=== PATIENT | female | born 1980 | race Caucasian/White ===

== ENCOUNTER 2020-10-17 19:52 | Emergency (ER) | payer BC ==
[~2020-10-17] VITALS: Ht 160 cm; Wt 73.8 kg
[~2020-10-17 19:52] MED LIST: IBUP200T49 PO; OXYC1TAB14 PO; PNV1TABL11 PO
[2020-10-17 20:14] VITALS: BP 170/97
[2020-10-17] MEDS ORDERED: KETOROLAC 30 MG/1 ML IM ONE (21:00)
[2020-10-17] MEDS ORDERED: CYCLOBENZAPRINE 10 MG TABLET PO ONE (21:00)
[2020-10-17] MEDS ORDERED: ACETAMINOPHEN 500 MG TABLET PO ONE (21:00)
--- NOTE | 2020-10-17 21:19 | NUR ---
PT AMBULATES FROM LOBBY TO ROOM WITH STEADY GAIT.
[2020-10-17] MEDS ORDERED: KETOROLAC 30 MG/1 ML ONE (21:21)
[2020-10-17] MEDS ORDERED: ACETAMINOPHEN 500 MG TABLET ONE (21:21)
[2020-10-17] MEDS ORDERED: CYCLOBENZAPRINE 10 MG TABLET ONE (21:21)
--- NOTE | 2020-10-17 21:27 | NUR ---
pt medicated per mar.
--- NOTE | 2020-10-17 22:32 | NUR ---
Note maris in ED - 10/17/20 at 2233 by LARRY pt asleep in [place] at this time with sherley. equal bilateral rise and fall of chest noted. awaiting tele psych consult for pt disposition at this time.
[2020-10-17] MEDS ORDERED: DIAZEPAM 5 MG TABLET ONE (22:47)
[2020-10-17] MEDS ORDERED: HYDROcodone/APAP 5/325 TABLET ONE (22:48)
--- NOTE | 2020-10-17 22:50 | NUR ---
pt medicated per mar.
[2020-10-17] MEDS ORDERED: HYDROcodone/APAP 5/325 TABLET PO ONE (23:00)
[2020-10-17] MEDS ORDERED: DIAZEPAM 5 MG TABLET PO ONE (23:00)
--- NOTE | 2020-10-17 23:05 | NUR ---
PT D/C WITH D/C SUMMARY AND SCRIPTS. ALL QUESTIONS ANSWERED. PT AMBULATES TO REGISTRATION DESK WITH STEADY GAIT FOR D/C HOME WITH FAMILY. PT VERBALIZES UNDERSTANDING OF NEED NOT TO DRIVE WHILE MEDICATED WITH MEDS PER MAR. PT VSS.
== END 2020-10-17 23:36 | disposition home or self-care (01) ==
LOC: ED 22:26
DX: S46.812A Strain of other muscles, fascia and tendons at shoulder and upper arm level, left arm, initial encounter (principal); M62.830 Muscle spasm of back; X58.XXXA Exposure to other specified factors, initial encounter; Y93.89 Activity, other specified; Y92.89 Other specified places as the place of occurrence of the external cause; Y99.8 Other external cause status
CPT/HCPCS: 96372; 99284; J1885